=== PATIENT | female | born 2000 | race Caucasian/White ===

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

== ENCOUNTER 2021-01-12 02:37 | Emergency (ER) | payer SELFPAY ==
[2021-01-12 03:08] LABS: #Basophils 0.1 thou/uL (0.0-0.2); #Lymphocytes 0.8 thou/uL (1.20-3.40); #Monocytes 1.1 thou/uL (0.11-0.59); #Neutrophils 9.2 thou/uL (1.40-6.50); %Basophils 0.5 % (0.0-1.0); %Eosinophils 0.4 % (0.0-10.0); %Lymphocytes 6.9 % (28.0-48.0); %Monocytes 9.9 % (0.0-4.0); %Neutrophils 82.4 % (31.0-61.0); Hemoglobin 12.3 g/dL (12.0-16.0); Mean Corpuscular HGB CONC 32.7 g/dL (32.0-36.0); Mean Corpuscular Hemoglobin 29.4 pg (25.0-35.0); Mean Corpuscular Volume 90.1 fL (78.0-98.0); Platelet Count 169 thou/uL (130-400); RBC Distribution Width 12.1 % (11.5-14.5); Red Blood Cell (RBC) Count 4.17 mill/uL (4.00-5.20); White Blood Cell (WBC) Count 11.1 thou/uL (4.8-10.8)
[2021-01-12 03:17] LABS: Bilirubin Negative (Negative); Blood, Urine Small (Negative); Clarity Clear (Clear); Glucose, Urine (Dipstick) Negative (Negative); Ketone, Urine Negative (Negative); Leukocyte Negative (Negative); Nitrite Negative (Negative); Protein, Urine (Dipstick) Negative (Neg-Trace); Specific Gravity, Urine 1.015 (1.005-1.030); Urobilinogen 0.2 mg/dL (Less than 2); pH, Urine 6.5 (5.0-9.0)
[2021-01-12] MEDS ORDERED: Ondansetron PF 4 MG/2 ML Vial ONE (03:17)
[2021-01-12 03:18] LABS: Pregu Control Background? CLEAR/WHITE (CLR/WHITE); Pregu Control Bar Appear? YES (CONTROL BAR); Specific Gravity 1.015 (1.002-1.036)
[2021-01-12 03:19] LABS: Pregnancy Test - Urine (BHCG) Negative (Negative)
[2021-01-12 03:24] LABS: RBC/HPF 0-3 HPF (0-3); WBC/HPF 0-3 HPF (0-3)
[2021-01-12 03:25] LABS: Bacteria/HPF None Seen HPF (None Seen); Mucous/LPF 1+ LPF (<2+); Squamous Epithelial 0-3 HPF (0-3); Yeast-Budding None Seen HPF (None Seen); Yeast-Hyphae None Seen HPF (None Seen)
[2021-01-12 03:25] LABS: ALT (SGPT) 8 U/L (8-55); AST (SGOT) 11 U/L (5-34); Albumin 4.1 g/dL (3.5-5.0); Alkaline Phosphatase 72 U/L (40-100); Anion Gap 15 mmol/L (10-20); BUN (Urea Nitrogen) Less than 4 mg/dL (7.0-18.7); Bilirubin, Total 0.3 mg/dL (0.2-1.2); Calc. Creatinine Clearance 0 mL/min (70-130); Calcium 9.1 mg/dL (7.8-10.44); Carbon Dioxide 23 mmol/L (22-29); Chloride 107 mmol/L (98-107); Globulin 2.8 g/dL (2.4-3.5); Glucose 95 mg/dL (70-105); Protein, Total 6.9 g/dL (6.0-8.3); Sodium 142 mmol/L (136-145)
[2021-01-12 03:29] LABS: Potassium 2.9 mmol/L (3.5-5.1)
[2021-01-12] MEDS ORDERED: Potassium Chloride 20 MEQ TAB ONE ×2 (04:08→04:10)
[2021-01-12] MEDS ORDERED: Acetaminophen/Codeine 30-300mg Tablet ONE (04:23)
[2021-01-12 04:32] LABS: SARS-CoV-2 NAA Rapid Test Not Detected (NotDetected)
== END 2021-01-12 04:53 | disposition home or self-care (01) ==
LOC: BURERS 02:37
DX: R05 Cough (principal); R11.2 Nausea with vomiting, unspecified; E87.6 Hypokalemia; Z20.822 Contact with and (suspected) exposure to COVID-19
CPT/HCPCS: 0241U; 71046; 80053; 81003; 81015; 81025; 83605; 85025; 87086; 94640; 96374; J2405; J7620

== ENCOUNTER 2021-03-17 11:57 | Outpatient (CLI) | payer OTHER ==
[2021-03-17 17:21] LABS: Syphilis Antibody Nonreactive (Nonreactive); Syphilis Antibody Index 0.03 S/CO (<1.00 Non-Reactive)
[2021-03-17 17:22] LABS: HIV (1/2) Antibody/Antigen Non-Reactive (NonReactive); HIV 1/2 INDEX 0.12 S/CO (<1.00)
== END 2021-03-17 11:58 | disposition home or self-care (01) ==
LOC: BURLAB 11:57
PROVIDERS: ATTEND Registered Nurse Community Health
DX: Z11.3 Encounter for screening for infections with a predominantly sexual mode of transmission (principal)
CPT/HCPCS: 36415; 86780; 87389; 87491; 87591

== ENCOUNTER 2022-06-15 13:14 | Emergency (ER) | payer OTHER, SELFPAY ==
[2022-06-15] MEDS ORDERED: Ondansetron PF 4 MG/2 ML Vial ONE (13:42)
[2022-06-15] MEDS ORDERED: Ketorolac Tromethamine 30 MG/ML VIAL ONE (13:42)
[2022-06-15 14:12] LABS: ALT (SGPT) 10 U/L (8-55); AST (SGOT) 11 U/L (5-34); Albumin 4.4 g/dL (3.5-5.0); Alkaline Phosphatase 57 U/L (40-110); Anion Gap 15 mmol/L (10-20); BUN (Urea Nitrogen) 13 mg/dL (7.0-18.7); Bilirubin, Total 1.2 mg/dL (0.2-1.2); CK (CPK) 26 U/L (29-168); Calc. Creatinine Clearance 0 mL/min (70-130); Calcium 9.9 mg/dL (7.8-10.44); Carbon Dioxide 28 mmol/L (22-29); Chloride 96 mmol/L (98-107); Estimated GFR 114; Globulin 3.7 g/dL (2.4-3.5); Glucose 90 mg/dL (70-105); Potassium 3.2 mmol/L (3.5-5.1); Protein, Total 8.1 g/dL (6.0-8.3); Sodium 136 mmol/L (136-145)
[2022-06-15 14:18] LABS: #Lymphocytes 1.4 thou/uL (1.20-3.40); #Monocytes 1.4 thou/uL (0.11-0.59); #Neutrophils 13.2 thou/uL (1.40-6.50); %Basophils 0.1 % (0.0-1.0); %Neutrophils 81.9 % (42.0-75.0); Hemoglobin 11.7 g/dL (12.0-16.0); Mean Corpuscular HGB CONC 33.9 g/dL (32.0-36.0); Mean Corpuscular Hemoglobin 30.7 pg (27.0-31.0); Mean Corpuscular Volume 90.7 fl (78.0-98.0); Mean Platelet Volume 9.5 fL (7.4-10.4); Platelet Count 201 10x3/uL (130-400); RBC Distribution Width 11.8 % (11.5-14.5); Red Blood Cell (RBC) Count 3.81 mill/uL (4.20-5.40); White Blood Cell (WBC) Count 16.1 10x3/uL (4.8-10.8)
== END 2022-06-15 15:52 | disposition home or self-care (01) ==
LOC: BURERS 13:14
DX: E86.0 Dehydration (principal); M54.2 Cervicalgia; M54.6 Pain in thoracic spine
CPT/HCPCS: 36415; 71046; 80053; 82550; 85025; 96374; 96375; J1885; J2405

== ENCOUNTER 2025-03-23 13:12 | Emergency (ER) | payer SELFPAY ==
[2025-03-23] MEDS ORDERED: predniSONE 20 MG TAB ONE (14:57)
== END 2025-03-23 15:00 | disposition home or self-care (01) ==
LOC: BURERS 13:12
DX: B34.9 Viral infection, unspecified (principal)
CPT/HCPCS: 87081; 87428; 87430; 99283; J7512